=== PATIENT | female | born 2000 | race Caucasian/White ===

== ENCOUNTER 2022-11-21 23:52 | Emergency (ER) | payer MEDICAID ==
[~2022-11-21] VITALS: Ht 157.5 cm; Wt 85.7 kg
[2022-11-22 00:02] VITALS: BP_SYST 128; PULSE 71; RESP 18; TEMP 97.5; O2SAT 98
[2022-11-22] MEDS ORDERED: NACL 0.9% 1,000 ML IV ONE (00:15)
[2022-11-22] MEDS ORDERED: KETOROLAC TROMETHAMINE 30 MG VIAL IVP ONE (00:15)
[2022-11-22 00:29] LABS: BASOPHILS % (AUTO) 0.2 % (0.0-2.0); EOSINOPHILS # (AUTO) 0.1 K/uL (0.0-0.4); HEMATOCRIT 35.3 % (36-48); HEMOGLOBIN 11.3 g/dL (12.0-16.0); LYMPHOCYTES # (AUTO) 4.5 K/uL (1.0-5.5); LYMPHOCYTES % (AUTO) 33.1 % (20.5-51.5); MEAN CORPUSCULAR HEMOGLOBIN 26 pg (27-31); MEAN CORPUSCULAR HGB CONC 32 % (32-36); MEAN CORPUSCULAR VOLUME 81 fL (79.0-98.0); MONOCYTES # (AUTO) 0.7 K/uL (0.0-1.0); MONOCYTES % (AUTO) 5.3 % (1.7-9.3); NEUTROPHILS # (AUTO) 8.3 K/uL (1.8-7.7); NEUTROPHILS % (AUTO) 60.4 % (40.0-70.0); PLATELET COUNT (AUTO) 376 K/uL (130-430); RED BLOOD CELL COUNT(AUTO) 4.38 MIL/uL (4.2-6.2); RED CELL DISTRIBUTION WIDTH 14.6 % (9.0-15.0); WHITE BLOOD COUNT (AUTO) 13.7 K/uL (4.8-10.8)
[2022-11-22 00:35] LABS: CALCIUM 8.5 mg/dL (8.4-11.0); CREATININE 0.63 mg/dL (0.55-1.30); POTASSIUM 3.4 mmol/L (3.5-5.1)
[2022-11-22 00:40] LABS: ALBUMIN 3.7 g/dL (3.4-4.8); TOTAL BILIRUBIN 0.2 mg/dL (0.0-1.0); TOTAL PROTEIN, SERUM 7.5 g/dL (6.4-8.3)
[2022-11-22 01:09] LABS: BILIRUBIN,URINE NEGATIVE (NEGATIVE); BLOOD, URINE 2+ (NEGATIVE); CLARITY/URINE CLEAR (CLEAR); COLOR,URINE YELLOW (YELLOW); GLUCOSE,URINE NEGATIVE (NEGATIVE); KETONES,URINE NEGATIVE (NEGATIVE); LEUKOCYTE ESTERASE ,URINE NEGATIVE (NEGATIVE); NITRITE, URINE NEGATIVE (NEGATIVE); PH,URINE 6.5 (5.0-8.0); PROTEIN URINE NEGATIVE (NEGATIVE); UROBILINOGEN,URINE 0.2 (0.2-1.0)
[2022-11-22 01:22] LABS: BACTERIA,URINE RARE /HPF (None Seen)
[2022-11-22] MEDS ORDERED: MEDR10TA72 PO (02:46)
[2022-11-22 02:52] VITALS: BP_SYST 105; PULSE 70; RESP 16; TEMP 97.5; O2SAT 99
== END 2022-11-22 02:52 | disposition home or self-care (01) ==
LOC: SED 23:52
DX: N93.8 Other specified abnormal uterine and vaginal bleeding (principal); R10.30 Lower abdominal pain, unspecified; Z79.899 Other long term (current) drug therapy
CPT/HCPCS: 99285; 80053; 81000; 85025; 36415; 74176; 96374; 96361; 76376; J1885; J7030

== ENCOUNTER 2023-11-11 00:01 | Emergency (ER) | payer MEDICAID ==
[~2023-11-11] VITALS: Ht 157.5 cm; Wt 85.3 kg
[~2023-11-11 00:01] MED LIST: MEDR10TA72 PO
[2023-11-11 00:06] VITALS: BP_SYST 117; PULSE 89; RESP 20; TEMP 97.1; O2SAT 96
[2023-11-11] MEDS: ONDANSETRON HCL 4 MG/2 ML VIAL IVP ONE (01:02)
[2023-11-11] MEDS: NACL 0.9% 1,000 ML IV ONE (01:02)
[2023-11-11 01:10] LABS: BILIRUBIN,URINE NEGATIVE (NEGATIVE); BLOOD, URINE NEGATIVE (NEGATIVE); CLARITY/URINE CLEAR (CLEAR); COLOR,URINE YELLOW (YELLOW); GLUCOSE,URINE NEGATIVE (NEGATIVE); KETONES,URINE NEGATIVE (NEGATIVE); LEUKOCYTE ESTERASE ,URINE NEGATIVE (NEGATIVE); NITRITE, URINE NEGATIVE (NEGATIVE); PROTEIN URINE NEGATIVE (NEGATIVE); UROBILINOGEN,URINE 0.2 (0.2-1.0)
[2023-11-11 01:35] LABS: BASOPHILS % (AUTO) 0.4 % (0.0-2.0); EOSINOPHILS # (AUTO) 0.2 K/uL (0.0-0.4); HEMOGLOBIN 12.5 g/dL (12.0-16.0); LYMPHOCYTES # (AUTO) 3.8 K/uL (1.0-5.5)
[2023-11-11 01:38] LABS: EOSINOPHILS % (AUTO) 2.1 % (0.0-4.0); HEMATOCRIT 37.1 % (36-48); LYMPHOCYTES % (AUTO) 35.8 % (20.5-51.5); MEAN CORPUSCULAR HEMOGLOBIN 27 pg (27-31); MEAN CORPUSCULAR HGB CONC 34 % (32-36); MEAN CORPUSCULAR VOLUME 80 fL (79.0-98.0); MONOCYTES # (AUTO) 0.5 K/uL (0.0-1.0); MONOCYTES % (AUTO) 4.8 % (1.7-9.3); NEUTROPHILS % (AUTO) 56.9 % (40.0-70.0); PLATELET COUNT (AUTO) 318 K/uL (130-430); RED BLOOD CELL COUNT(AUTO) 4.67 MIL/uL (4.2-6.2); RED CELL DISTRIBUTION WIDTH 15.3 % (9.0-15.0); WHITE BLOOD COUNT (AUTO) 10.6 K/uL (4.8-10.8)
[2023-11-11 01:41] LABS: ALBUMIN 4.1 g/dL (3.4-4.8); BILIRUBIN,DIRECT 0.1 mg/dL (0.0-0.3); CALCIUM 9.2 mg/dL (8.4-11.0); CREATININE 0.79 mg/dL (0.55-1.30); POTASSIUM 3.7 mmol/L (3.5-5.1); TOTAL BILIRUBIN 0.3 mg/dL (0.0-1.0); TOTAL PROTEIN, SERUM 7.8 g/dL (6.4-8.3)
[2023-11-11] MEDS: KETOROLAC TROMETHAMINE 30 MG VIAL IVP ONE (02:29)
[2023-11-11] MEDS ORDERED: SULF1TAB48 PO (02:32)
[2023-11-11] MEDS ORDERED: DICY-14 PO (02:33)
[2023-11-11 02:50] VITALS: BP_SYST 117; PULSE 89; RESP 20; TEMP 97.1; O2SAT 96
== END 2023-11-11 00:23 | disposition home or self-care (01) ==
LOC: SED 00:01
DX: K52.89 Other specified noninfective gastroenteritis and colitis (principal); R10.9 Unspecified abdominal pain; Z79.899 Other long term (current) drug therapy
CPT/HCPCS: 99284; 96374; 96361; 96375; 80076; 80048; 81001; 83690; 85025; 36415; 81025; 81003; J1885; J2405; J7030

== ENCOUNTER 2023-12-19 10:38 | Emergency (ER) | payer MEDICAID ==
[~2023-12-19] VITALS: Ht 157.5 cm; Wt 81.6 kg
[~2023-12-19 10:38] MED LIST changes: +DICY-14 PO; +SULF1TAB48 PO
[2023-12-19 10:41] VITALS: PULSE 89; RESP 17; TEMP 98.2; O2SAT 98
[2023-12-19] MEDS: PANTOPRAZOLE SODIUM 40 MG TAB PO ONE (11:23)
[2023-12-19 11:51] LABS: BASOPHILS % (AUTO) 0.3 % (0.0-2.0); EOSINOPHILS # (AUTO) 0.3 K/uL (0.0-0.4); EOSINOPHILS % (AUTO) 2.9 % (0.0-4.0); HEMATOCRIT 36.9 % (36-48); LYMPHOCYTES # (AUTO) 2.4 K/uL (1.0-5.5); LYMPHOCYTES % (AUTO) 21.9 % (20.5-51.5); MEAN CORPUSCULAR HEMOGLOBIN 26 pg (27-31); MEAN CORPUSCULAR HGB CONC 33 % (32-36); MEAN CORPUSCULAR VOLUME 81 fL (79.0-98.0); MONOCYTES # (AUTO) 0.5 K/uL (0.0-1.0); MONOCYTES % (AUTO) 5.1 % (1.7-9.3); NEUTROPHILS # (AUTO) 7.5 K/uL (1.8-7.7); NEUTROPHILS % (AUTO) 69.8 % (40.0-70.0); PLATELET COUNT (AUTO) 342 K/uL (130-430); RED BLOOD CELL COUNT(AUTO) 4.56 MIL/uL (4.2-6.2); WHITE BLOOD COUNT (AUTO) 10.8 K/uL (4.8-10.8)
[2023-12-19 11:53] LABS: BILIRUBIN,URINE NEGATIVE (NEGATIVE); BLOOD, URINE NEGATIVE (NEGATIVE); CLARITY/URINE CLEAR (CLEAR); COLOR,URINE YELLOW (YELLOW); GLUCOSE,URINE NEGATIVE (NEGATIVE); KETONES,URINE NEGATIVE (NEGATIVE); LEUKOCYTE ESTERASE ,URINE NEGATIVE (NEGATIVE); NITRITE, URINE NEGATIVE (NEGATIVE); PROTEIN URINE NEGATIVE (NEGATIVE); UROBILINOGEN,URINE 0.2 (0.2-1.0)
[2023-12-19 12:14] LABS: SERUM HCG (QUALITATIVE) NEGATIVE (NEGATIVE)
[2023-12-19 12:18] LABS: BILIRUBIN,DIRECT 0.1 mg/dL (0.0-0.3); CALCIUM 8.9 mg/dL (8.4-11.0); CREATININE 0.68 mg/dL (0.55-1.30); POTASSIUM 3.5 mmol/L (3.5-5.1); TOTAL BILIRUBIN 0.4 mg/dL (0.0-1.0); TOTAL PROTEIN, SERUM 7.6 g/dL (6.4-8.3)
[2023-12-19] MEDS ORDERED: PANT20TA2 PO (12:35)
== END 2023-12-19 12:58 | disposition home or self-care (01) ==
LOC: SED 10:38
DX: K29.70 Gastritis, unspecified, without bleeding (principal); R10.13 Epigastric pain; K21.9 Gastro-esophageal reflux disease without esophagitis; Z79.899 Other long term (current) drug therapy; Z79.2 Long term (current) use of antibiotics
CPT/HCPCS: 36415; 76705; 80048; 80076; 81001; 81003; 82150; 83605; 83690; 84703; 85025; 99284